=== PATIENT | female | born 2005 | race Caucasian/White ===

== ENCOUNTER 2024-02-17 06:55 | Emergency (ER) | payer OTHER, SELFPAY ==
[2024-02-17 07:21] VITALS: BP 126/72; PULSE 72; RESP 16; TEMP 36.8; O2SAT 98; BMI 26.6
--- NOTE | 2024-02-17 07:30 | ED_ITS ---
HPI - General Adult General Time Seen by Provider: 07:30 Date Seen: 02/17/24 Chief complaint: Ear/Nose/Throat Problem Stated complaint: LT ear pain, UTI symptoms Time Seen by Provider: 02/17/24 06:57 Source: patient, RN notes reviewed and old records reviewed Mode of arrival: ambulatory Limitations: no limitations History of Present Illness HPI narrative: With 18-year-old female who comes in today with left ear pain since yesterday also urinary frequency for 1 week. No runny nose or cough, no drainage from the ear and no known injury. Has not taken anything for symptoms. Hearing in the left ear is little decreased. Related Data Previous Rx's ?Medication ?Instructions ?Recorded amoxicillin 875 mg tablet 875 mg PO BID 8 days #16 tabs 02/17/24 Allergies Allergy/AdvReac Type Severity Reaction Status Date / Time No Known Drug Allergies Allergy Verified 02/17/24 07:24 PFS PFS Social History Smoking Status: Never smoker How often do you have a drink containing alcohol: never AUDIT-C Alcohol total score: 0 Non-prescribed substance use: denies use Exam Narrative: Exam Narrative: General: Well-developed and well-nourished, no acute distress Head: Atraumatic and normocephalic Eyes: Pupils are equal reactive, extraocular motions intact, conjunctiva clear ENT: External nose and ears are normal, posterior pharynx without erythema or exudate. Left tympanic membrane obscured by wax Neck: No midline cervical tenderness, full spontaneous range of motion the neck, trachea midline, no adenopathy Heart: Regular rate and rhythm no murmurs or thrills Lungs: Clear to auscultation bilaterally without wheezes or crackles Abdomen: Soft, nontender, nondistended with active bowel sounds Musculoskeletal: No tenderness, deformity, or edema Neurologic: Awake, alert, and oriented x3, no gross focal neurologic deficits, cranial nerves intact as tested Psych: Mood and affect are appropriate Skin: No rashes Const: Vital Signs, click to edit/add: Vital Signs - 24 hr 02/17/24 07:21 Temperature 98.3 F Pulse Rate [Pulse Oximeter] 72 Respiratory Rate 16 Blood Pressure [Ri ght Upper Arm] 126/72 Pulse Oximetry 98 Oxygen Delivery Me thod Room Air Course Course ED Course: Patient seen examined, prior records reviewed. Patient presents with urinary frequency and also throbbing pain in the left ear since yesterday. On exam, vital is stable and well appearing. The left tympanic membrane is occluded by wax. This will be irrigated and will be reexamined. Vital Signs Vital signs: Initial Vital Signs Temperature 98.3 F 02/17/24 07:21 Temperature Source Temporal Artery Scan 02/17/24 07:21 Pulse Rate 72 02/17/24 07:21 Respiratory Rate 16 02/17/24 07:21 Blood Pressure 126/72 02/17/24 07:21 Blood Pressure Mean 90 02/17/24 07:21 Blood Pressure Position Sitting 02/17/24 07:21 Pulse Oximetry 98 02/17/24 07:21 Oxygen Delivery Method Room Air 02/17/24 07:21 Vital Signs Temperature 98.3 F 02/17/24 07:21 Pulse Rate 72 02/17/24 07:21 Respiratory Rate 16 02/17/24 07:21 Blood Pressure 126/72 02/17/24 07:21 Pulse Oximetry 98 02/17/24 07:21 Oxygen Delivery Method Room Air 02/17/24 07:21 Temperature 98.3 F 02/17/24 07:21 Pulse Rate 72 02/17/24 07:21 Respiratory Rate 16 02/17/24 07:21 Blood Pressure 126/72 02/17/24 07:21 Pulse Oximetry 98 02/17/24 07:21 Oxygen Delivery Method Room Air 02/17/24 07:21 Medical Decision Making Lab Data Labs: Lab Results 02/17/24 Range/Units Unknown Urine Color Yellow (Yellow) Urine Appearance Clear (Clear) Urine pH 7.0 (5.0-8.5) Ur Specific [place] 1.010 (1.000-1.030) Urine Protein Negative (Negative) Urine Glucose (UA) Negative (Negative) Urine Ketones Negative (Negative) Urine Blood Trace-intact A (Negative) Urine Nitrite Negative (Negative) Urine Bilirubin Negative (Negative) Urine Urobilinogen 0.2 (0.2-1.0) Ur Leukocyte Esterase Negative (Negative) Urine RBC 0-2 (0-2) Urine WBC 0-2 (0-5) Ur Squamous Epith Cells None (None-Few) Urine Bacteria Few A (None) Discharge Plan Discharge Clinical Impression: Cerumen impaction, Otitis media, Urinary frequency Patient Disposition: Home, Self-Care Condition: Improved Additional Instructions: You appear to have some inflammation of the tympanic membrane of the left ear. It would appear to be an infection of the middle ear but your story, timing, is really unusual for that to have developed. I would like you to try some decongestant first. Try pseudoephedrine for drying/decongestion which is available [id number]. I like the 12 hour formulation myself. If this is getting markedly worse or not better in a couple of days I have called in an antibiotic for you as well that you can fill. Otherwise try to avoid using Q-tips in the ear. Consider treatment with Debrox - type ear drops to help soften and remove the wax buildup. Prescriptions: New amoxicillin 875 mg tablet 875 mg PO BID 8 Days Qty: 16 0RF Follow Up/Referrals: Provider,Not a Local [Primary Care Provider] - Stand Alone Forms: Transmit Info Instructions
[2024-02-17 07:35] LABS: Appearance Urine Clear (Clear); Bilirubin Urine Negative (Negative); Blood Urine Trace-intact (Negative); Color Urine Yellow (Yellow); Glucose Urine Negative (Negative); Ketones Urine Negative (Negative); Leukocyte Esterase Urine Negative (Negative); Nitrite Urine Negative (Negative); Protein Urine Negative (Negative); Urobilinogen Urine 0.2 (0.2-1.0)
[2024-02-17 08:01] LABS: Bacteria Urine Few; RBC Urine 0-2 (0-2); WBC Urine 0-2 (0-5)
--- NOTE | 2024-02-17 08:15 | ED.NURSE ---
Irrigated left ear for approximately 10 minutes with minimal amount of brown wax from ear. Patient tolerated the procedure well.
--- OUTSIDE RECORDS SUMMARY | 2024-02-17 08:37 | XMS_ITS | Clinical Summary ---
Author Organization [facility] Address [address] [address] Phone Care Team Providers Care Is/It Project Manager Name Role Phone Choice, No Pcp-Patient Primary Care Provider Luciana vailable Allergies No known active allergies Medications No known medications Social History Tobacco Use Types Packs/Day Years Used Date Smoking Tobacco: Never Assessed EH IP Custom IPV Answer Date Recorded Do you feel UNSAFE in any of your personal relationships with your family members or any other acquaintances? No 2022 Sex and Gender Information Value Date Recorded Sex Assigned at Not on file Gender Identity Not on file Sexual Orientation Not on file Job Start Date Occupation Industry Not on file Not on file Not on file Growth Chart Information Age Height Weight Azkwib-ubx-spin th Percentile BMI Percentile Head Circum Head Circum Percentile Date 18 years 162.6 cm (5' 4) 59 kg (130 lb) 58.58%* 2022 * [facility] (Girls, 2-20 Years) Last Filed Vital Signs Vital Sign Reading Time Taken Comments Blood Pressure 104/66 06/03/2023 11:29 AM [facility] Pulse 76 06/03/2023 11:29 AM [facility] Temperature 36.5 ??C (97.7 ??F) 06/03/2023 10:[address] Respiratory Rate 18 06/03/2023 11:29 AM [facility] Oxygen Saturation 96% 06/03/2023 11:29 AM [facility] Inhaled Oxygen Concentration - - Weight 59 kg (130 lb) 06/03/2023 10:33 AM [facility] Height 162.6 cm (5' 4) 06/03/2023 10:33 AM [facility] Body Mass Index 22.31 06/03/2023 10:33 AM [facility] Plan of Treatment Not on file Care Teams Is/It Project Manager Relationship Specialty Start Date End Date Choice, No Pcp-Patient PCP - General 06/03/23
--- OUTSIDE RECORDS SUMMARY | 2024-02-17 08:37 | XMS_ITS | Referral Summary ---
Author Organization [facility] Address [address] [place] [address] Care Team Providers Care Hand Packager Name Role Phone Elsewhere, Pcp Primary Care Provider Unavailabl e Source Comments Patient records contain information from all sites at [facility]. For routine questions regarding patient records, call [phone] during business hours, M-F 8:00 AM - 5:00 PM Central Time. Record requests for emergency care only can be directed to [phone] at any time.[facility] Allergies No known active allergies Medications No known medications Social History Tobacco Use Types Packs/Day Years Used Date Smoking Tobacco: Never Smokeless Tobacco: Never Tobacco Cessation:Counseling Given: Not Answered Nutrition Answer Date Recorded Nutrition: EVOO Fat Source Unknown 04/29 Nutrition: Servings of Fruits/Vegetables per Day Not on file 04/29/2023 Dental Answer Date Recorded Dental: Regular Dentist Unknown 04/29/20 Sex and Gender Information Value Date Recorded Sex Assigned at Not on file Gender Identity Not on file Sexual Orientation Not on file Last Filed Vital Signs Vital Sign Reading Time Taken Comments Blood Pressure 119/83 04/29/2023 9:00 PM CDT Pulse 85 04/29/2023 9:10 PM CDT Temperature 36.6 ??C (97.9 ??F) 04/29/2023 9:10 PM CD T Respiratory Rate 16 04/29/2023 9:00 PM CDT Oxygen Saturation 98% 04/29/2023 9:10 PM CDT Inhaled Oxygen Concentration - - Weight 70 kg (154 lb 5.2 oz) 04/29/2023 9:10 PM CDT Height 162.6 cm (5' 4) 04/29/2023 9:10 PM CDT Body Mass Index 26.49 04/29/2023 9:10 PM CDT Plan of Treatment Not on file Care Teams Hand Packager Relationship Specialty Start Date End Date Elsewhere, Pcp PCP - General Internal Medicine 04/29/23
--- OUTSIDE RECORDS SUMMARY | 2024-02-17 08:37 | XMS_ITS ---
Author Organization [facility] Address [address] [place] [address] Care Team Providers Care Pesticide Use Medical Coordinator Name Role Phone Unavailable Unavailable Unavailable Surgery Details Not on file Complications Check Surgery Details section. Procedure Estimated Blood Loss Check Surgery Details section. Procedure Findings Check Surgery Details section. Procedure Specimens Taken Check Surgery Details section.
--- OUTSIDE RECORDS SUMMARY | 2024-02-17 08:37 | XMS_ITS | Clinical Summary ---
Author Organization [facility] Address [address] [place] [address] Care Team Providers Care Pharmacist Per Diem Name Role Phone Elsewhere, Pcp Primary Care Provider Unavailabl e Source Comments Patient records contain information from all sites at [facility]. For routine questions regarding patient records, call [phone] during business hours, M-F 8:00 AM - 5:00 PM Central Time. Record requests for emergency care only can be directed to [phone] at any time.[facility] Allergies No known active allergies Medications No [...] of Treatment Not on file Care Teams Pharmacist Per Diem Relationship Specialty Start Date End Date Elsewhere, Pcp PCP - General Internal Medicine 04/29/23
== END 2024-02-17 09:00 | disposition home or self-care (01) ==
PROVIDERS: Emergency Provider Family Medicine
DX: H66.92 Otitis media, unspecified, left ear (principal); H61.22 Impacted cerumen, left ear; R35.0 Frequency of micturition
CPT/HCPCS: 81001; 87086; 99283